=== PATIENT | male | born 1955 | race Caucasian/White ===

== ENCOUNTER → 2018-02-19 08:39 | Day surgery (SDC) | payer OTHER, SELFPAY ==
--- NOTE | 2018-02-19 | PATH_ITS ---
[facility] Accession Number: [id number] . 01 Material submitted: . PART A: TRANSVERSE COLON POLYP AT 50CM PART B: HEPATIC FLEXURE POLYPS PART C: ASCENDING COLON POLYP AT 70CM . 01 Clinical history: . B: POLYPS X 2 . 02 Diagnosis: A. Transverse Colon Polyp At 50 CM: Tubular adenoma. . B. Hepatic Flexure Polyps: Fragments of tubular adenoma (2 polyps removed). . C. Ascending Colon Polyp At 70 CM: Tubular adenoma. I/02/20/2018 . 02 Electronically signed: . Phillip Monzon MD, PhD, Pathologist NPI- [id number] . 01 Gross description: . Received are three formalin-filled containers, each labeled with the patient's name: . A. In a container labeled transverse colon polyp at 50 cm, the specimen consists of a 0.3 cm portion of tissue, entirely submitted in cassette A. B. In a container labeled hepatic flexure polyp, are multiple less than 0.1 cm to 0.3 cm portions of tissue, which are filtered, wrapped, and entirely submitted in cassette B. C. In a container labeled descending col polyp at 70 cm, the specimen consists of a 0.1 cm portion of tissue, entirely submitted in cassette C. ([id number]) /FRR . 02 Pathologist provided ICD-10: D12.2, D12.3 . 02 CPT . 033292, 386204, 755992 Performed at: 01 [facility] [address], [place], [place] [id number] MD Oscar Ennis MD Phone: [phone] Performed at: 02 [facility] [address] [id number] MD Hernesto Sears MD Phone: [phone]
[2018-02-19 09:23] VITALS: BP 126/83; PULSE 69; RESP 14; TEMP 36.3; O2SAT 99
[2018-02-19] MEDS: SODIUM CHLORIDE 0.9% 1,000 ML 21 ML IV (09:23)
--- NOTE | 2018-02-19 09:34 | P.HP_ITS ---
History of Present Illness Date Patient Seen: 02/19/18 Time Patient Seen: 09:29 Chief complaint: colonoscopy 20147 Narrative: 62-year-old male who presents for colorectal screening. It has been 10 years since his last colonoscopy. He reports that that study was normal at the time. He has been having no gastrointestinal symptoms lately. Denies any nausea, vomiting, abdominal pain, unanticipated weight loss, change in bowel habits, diarrhea, constipation, melena, hematochezia, or bright red blood per rectum. Patient History Medical History Benign prostatic hyperplasia (Acute) Hyperlipidemia (Acute) Seasonal allergies (Acute) Surgical History History of hydrocelectomy (Resolved) History of colonoscopy (Inactive) Family & Social History Family History: Reviewed 02/19/18 by Elgin De Jesus MD Social History: household members spouse Former smoker but quit many years ago. Drinks 2-3 alcoholic beverages per day. Recently returned from a trip to [place]. Meds Home Medications Medication Instructions Recorded Confirmed Type aspirin 81 mg PO DAILY 02/19/18 02/19/18 History atorvastatin 40 mg PO DAILY 02/19/18 02/19/18 History azelastine 1 spray INTRANASAL BID 02/19/18 02/19/18 History fenofibrate 145 mg PO DAILY 02/19/18 02/19/18 History loratadine 10 mg PO DAILY 02/19/18 02/19/18 History Allergies Allergy/AdvReac Type Severity Reaction Status Date / Time No Known Drug Allergies Allergy Verified 02/19/18 09:03 Review of Systems Review of Systems All systems reviewed & are unremarkable except as noted in HPI and below Exam Vital Signs (past 8 hours): Vital Signs - 8 hr 3 02/19/18 09:23 Temperature 97.3 F L Pulse Rate 69 Respiratory Rate 14 Blood Pressure 126/83 H Pulse Oximetry 99 Pulse Oximetry 99 Oxygen Delivery Method Room Air Narrative Exam Narrative: Well-nourished well-developed male in no acute distress. Alert oriented x3. accompanies him at the bedside Sclera nonicteric Chest clear to auscultation bilaterally. Regular rate and rhythm Abdomen soft, nondistended, nontender, no masses Extremities show no clubbing, cyanosis, or edema Objective Labs Labs: No recent laboratory or radiographic studies for review Assessment & Plan (1) Screening for colorectal cancer: Problem details: Last colonoscopy was 10 years ago Current visit: Yes Status: Acute Plan: Assessment/Plan Narrative: 62-year-old male requiring colorectal screening since it has been sometime from his prior examination. I recommend colonoscopy. Technical details of the procedure were discussed at length. Risks, benefits, alternatives were explained. Risks including but not limited to sedation, aspiration, bleeding, pain, missed lesion, incomplete examination, need for further radiographic studies, colonic perforation, need for major abdominal surgery, and all attendant risks of major surgery were explained at length. All questions were answered to his satisfaction, and he voiced understanding. Consent was placed on the chart. We will proceed as above.
--- NOTE | 2018-02-19 09:34 | PM.PREOP ---
Pre-operative Note Interval Note Pre-op Check: History & Physical Reviewed by Physician, Exam Performed and History & Physical exam performed today H&P completed within 30 days and has changed as indicated here:: 62-year-old male seen and examined today for colorectal screening. He requires colonoscopy. History physical examination is placed on the chart today. We will proceed as planned. ASA Class (for procedural sedation): I
[2018-02-19] MEDS: fentaNYL 250 MCG/5 ML INJ IV (09:55)
[2018-02-19] MEDS: MIDAZOLAM 5 MG/5 ML VIAL IV (09:56)
--- NOTE | 2018-02-19 09:57 | PM.OP.ENDO ---
Operative Date/Time/Diagnoses - Date of procedure: 02/19/18 Time of procedure: 09:57 Pre-op diagnosis: Colorectal screening Post-op diagnosis: other (Multiple polyps and pandiverticulosis) Procedure & Clinicians Study performed: 1. Sedation per surgeon 2. Colonoscopy with multiple cold forceps polypectomies Same procedure as scheduled: Yes Indications: 62-year-old male who presented for colorectal screening. It has been 10 years since his last examination. Colonoscopy is once again recommended. Surgeon: Elgin De Jesus Procedure Notes SCOAP/Timeout: Yes Procedure in detail: After obtaining informed consent, the patient was brought to the GI suite and placed in the left lateral decubitus position on the examination table. After placement of appropriate monitors, the patient was given incremental doses of Versed and Fentanyl until an appropriate level of sedation was achieved. A time out was held per SCOAP protocol. A digital rectal examination was performed and did not reveal any masses or obstructing lesions. The colonoscope was gently passed into the patient's anus and the entire colon navigated to the level of the cecum with minimal difficulty. Once in the cecum, the scope was withdrawn being sure to go before and beyond all mucosal folds and prominences and get an excellent examination. The findings are noted above. At the level of the rectal vault, the scope was retroflexed and the internal anal canal was examined. The scope was straightened and air aspirated from the colon. The instrument was removed from the patient's body and the procedure was concluded. The patient was allowed to awaken from sedation without difficulty and taken to the post-anesthesia care unit in good condition. Scope withdrawal time: 10:55 Sedation minutes: 20 Findings: diverticulosis (Throughout the entire colon including cecum the without inflammation or hemorrhage) and polyp (Multiple polyps) Specimen(s): other (1. Ascending colon polyp at 70 cm 2. Hepatic flexure polyps x2 3. Transverse colon polyp at 50 cm) Complications: none Recommendations: Colonscopy in 5 years, High fiber diet and Will call with biopsy results Plan for aftercare: 1. Discharge to home Follow up: as needed Disposition: PACU
[2018-02-19 10:01] VITALS: BP 134/88; PULSE 72; RESP 19; TEMP 36.6; O2SAT 96
--- NOTE | 2018-02-19 10:03 | SUR.PHASEII ---
patient arrives awake and alert, denies pain or nausea. remains alert and awake.
[2018-02-19 10:13] VITALS: BP 140/90; PULSE 74; RESP 14; O2SAT 94
== END | disposition home or self-care (01) ==
PROVIDERS: Family Provider Family Medicine; PCP Family Medicine; Visit Provider Surgery
PROC: 0DJD8ZZ Inspection of Lower Intestinal Tract, Via Natural or Artificial Opening Endoscopic (ICD-10-PCS; CPT 45378; principal; 2018-02-19 09:45)
DX: Z12.11 Encounter for screening for malignant neoplasm of colon (principal); K57.30 Diverticulosis of large intestine without perforation or abscess without bleeding; N40.0 Benign prostatic hyperplasia without lower urinary tract symptoms; E78.5 Hyperlipidemia, unspecified; D12.2 Benign neoplasm of ascending colon; D12.3 Benign neoplasm of transverse colon
CPT/HCPCS: 45380; 99152; J2250; J3010

== ENCOUNTER → 2020-12-03 08:38 | Outpatient (CLI) | payer BC, SELFPAY ==
[2020-12-03] MEDS: COVID-19 VACC #1, MRNA(MOD) 100 MCG/0.5 ML VIAL IM (08:44)
== END ==
PROVIDERS: Visit Provider Internal Medicine
DX: Z23 Encounter for immunization (principal)
CPT/HCPCS: 0011A; 91301

== ENCOUNTER → 2020-12-31 08:31 | Outpatient (CLI) | payer BC, SELFPAY ==
[2020-12-31] MEDS: COVID-19 VACC #2, MRNA(MOD) 100 MCG/0.5 ML VIAL IM (08:43)
== END ==
PROVIDERS: Visit Provider Internal Medicine
DX: Z23 Encounter for immunization (principal)
CPT/HCPCS: 0012A; 91301

== ENCOUNTER → 2021-03-18 12:07 | Outpatient (CLI) | payer BC, SELFPAY ==
--- NOTE | 2021-03-18 12:09 | DI.MRI.S_ITS ---
PROCEDURE: MR PELIS WO/W CON INDICATIONS: Prostate CA TECHNIQUE: Coronal HASTE, axial T1 FSE with fat saturation, 3-plane nonbreath-hold T2 FSE. After the administration of contrast, dynamic axial, delayed axial and coronal VIBE or 2-D FLASH with fat saturation through the pelvis. Optional diffusion weighted imaging and ADC may be performed. COMPARISON: None. FINDINGS: Image quality: Diagnostic. Prostate: Gland size is 5.9 x 4.4 x 4.7 cm; ellipsoid gland volume is 63 mL. There is heterogeneous enlargement of the transition zone compatible with BPH. Numerous heterogeneous encapsulated nodules are demonstrated within the transition zone with imaging findings consistent with PI-RADS 2 BPH nodules. There are a few scattered linear areas of intrinsic T1 hyperintensity within the bilateral peripheral zone and a few small foci within the transition zone compatible with blood products likely from a prostate biopsy. This includes a linear region in the right posterior peripheral zone within the mid prostate demonstrating T1 hyperintensity and T2 hypointensity but without associated restricted diffusion. Lesion size(s): Lesion 1: 1.3 x 0.9 x 1.3 cm. Lesion location(s) (sector): Lesion 1: Left posterior peripheral zone at the level of the mid gland to apex. Lesion description: Lesion 1: There is an irregular T2 hypointense lesion with indistinct and spiculated margins. No evidence of extraprostatic invasion. T2 weighted imaging (T2WI) morphology score: Lesion 1: 4 Diffusion weighted imaging (DWI) morphology score: Lesion 1: 4-The lesion is markedly hypointense on ADC with mild hyperintensity on diffusion images. Dynamic contrast enhancement (DCE): Lesion 1: Present. Lesion PI-RADS score: Lesion 1: PI-RADS 4 Genitourinary system: Bladder wall thickness is normal. Distal ureters are non distended. Bowel and peritoneum: No pathologic free pelvic fluid. Inferior colon and small bowel loops are normal in caliber. Nodes and vessels: No pelvic or inguinal adenopathy by size criteria. Iliac vessels are normal in caliber. Soft tissues: No inguinal hernias. Bones: Marrow demonstrates normal overall signal, without suspicious osseous lesions identified. IMPRESSION: 1. PI-RADS 4 lesion demonstrated within the left posterior peripheral zone at high suspicion for clinically significant prostate cancer. No evidence of extraprostatic invasion. 2. Heterogeneous enlargement of the transition zone with multiple encapsulated heterogeneous nodules compatible with PI-RADS 2 BPH nodules. 3. No pelvic lymphadenopathy by size criteria. Dictated by: Oscar Mckeon M.D. on 03/19/2021 at 9:00 Approved by: Oscar Mckeon M.D. on 03/19/2021 at 9:24
== END ==
PROVIDERS: PCP Student in an Organized Health Care Education/Training Program; Referring Provider Specialist; Visit Provider Specialist
DX: C61 Malignant neoplasm of prostate (principal); N52.9 Male erectile dysfunction, unspecified; R97.20 Elevated prostate specific antigen [PSA]
CPT/HCPCS: 72197; A9579

== ENCOUNTER → 2021-07-01 09:08 | Outpatient (CLI) | payer MEDICARE, SELFPAY ==
--- NOTE | 2021-07-01 | DI.US.S_ITS ---
PROCEDURE: US ABD AORTA ANEURYSM SCREEN INDICATIONS: SCREENING TECHNIQUE: Real time scanning was performed of the aorta and iliac arteries, with image documentation. COMPARISON: None. FINDINGS: Aorta: Proximal aortic diameter measures 2.9 cm. Mid-aorta measures 2.2 cm. Distal aortic diameter is 1.6 cm. Iliac arteries: Right common iliac artery measures 1.2 cm. Left common iliac artery measures 1 cm. IMPRESSION: Negative for aneurysm. Dictated by: Carlos Smith M.D. on 07/01/2021 at 14:00 Approved by: Carlos Smith M.D. on 07/01/2021 at 14:01
== END ==
PROVIDERS: PCP Student in an Organized Health Care Education/Training Program; Referring Provider Student in an Organized Health Care Education/Training Program; Visit Provider Student in an Organized Health Care Education/Training Program
DX: Z13.6 Encounter for screening for cardiovascular disorders (principal)
CPT/HCPCS: 76706

== ENCOUNTER → 2021-09-20 15:38 | Outpatient (CLI) | payer MEDICARE, SELFPAY ==
--- NOTE | 2021-09-20 15:40 | DI.MRI.S_ITS ---
PROCEDURE: MR PELIS WO/W CON INDICATIONS: prostate cancer TECHNIQUE: Coronal HASTE, axial T1 FSE with fat saturation, 3-plane nonbreath-hold T2 FSE. After the administration of contrast, dynamic axial, delayed axial and coronal VIBE or 2-D FLASH with fat saturation through the pelvis. Optional diffusion weighted imaging and ADC may be performed. COMPARISON: [facility], MR, MR PELVIS WO/W CON, 03/18/2021, 12:40. FINDINGS: Image quality: Diffusion weighted and dynamic contrast enhanced images are diagnostic. Prostate: Gland size is 5.6 x 4.7 x 3.9 cm; ellipsoid gland volume is 53 mL. Multiple BPH nodules. No significant intrinsic T1 hyperintense foci to suggest hemorrhage. Lesion size(s): Lesion 1: 0.8 x 0.8 cm, (12/17). (Previously 0.9 x 0.7 cm on 03/18/2021). Lesion 2: 0.6 x 0.5 cm, (12/15). (Previously 0.8 x 0.5 cm). Lesion location(s) (sector): Lesion 1: Gardners left peripheral zone. Lesion 2: Gardners right peripheral zone. Lesion description: Lesion 1: Oval Lesion 2: Wedge-shaped T2 weighted imaging (T2WI) morphology score: Lesion 1: 4 Lesion 2: 3 Diffusion weighted imaging (DWI) morphology score: Lesion 1: 4 Lesion 2: 3 Dynamic contrast enhancement (DCE): Lesion 1: Present Lesion 2: Absent Lesion PI-RADS score: Lesion 1: PI-RADS 4. Overall this lesion is not felt to be significantly changed. Lesion 2: PI-RADS 3. Unchanged. Genitourinary system: Bladder wall thickness is normal. Distal ureters are non distended. Bowel and peritoneum: No pathologic free pelvic fluid. Inferior colon and small bowel loops are normal in caliber. Nodes and vessels: No pelvic or inguinal adenopathy by size criteria. Iliac vessels are normal in caliber. Soft tissues: No inguinal hernias. Bones: Marrow demonstrates normal overall signal, without lesions to suggest metastases. IMPRESSION: 1. Left apex peripheral zone observation measuring 0.8 cm, unchanged. PI-RADS 4. 2. Right apex peripheral zone observation measuring 0.6 cm, unchanged. PI-RADS 3. 3. No enlarged lymph nodes. 4. Prostatomegaly. Dictated by: Bob Chávez M.D. on 09/20/2021 at 17:42 Approved by: Bob Chávez M.D. on 09/20/2021 at 17:55
== END ==
PROVIDERS: PCP Student in an Organized Health Care Education/Training Program; Referring Provider Specialist; Visit Provider Specialist
DX: C61 Malignant neoplasm of prostate (principal); N40.0 Benign prostatic hyperplasia without lower urinary tract symptoms
CPT/HCPCS: 72197

== ENCOUNTER 2023-03-02 07:28 | Day surgery (SDC) | payer MEDICARE, SELFPAY ==
--- NOTE | 2023-03-02 | PATH_ITS ---
[facility] Accession Number: [id number] No. of containers..02 Tissue . 01 Material submitted: . PART A: colon - TRANSVERSE POLYP PART B: colon - ASCENDING POLYPS . 01 Diagnosis: A. Transverse Colon, Polyp, Biopsy: Tubular adenoma. . B. Ascending Colon, Polyps, Biopsies: Tubular adenoma. Sessile serrated adenoma. V 03/13/2023 1507 Local . 01 Electronically signed: . Kavita Al MD, Pathologist NPI- [id number] . 01 Gross description: . Part A: TRANSVERSE POLYP: Received in formalin is 1 fragment(s) of falcon, soft tissue measuring 0.4 x 0.4 x 0.3 cm submitted entirely in 1 cassette(s) Part B: ASCENDING POLYPS : Received in formalin are 2 fragment(s) of falcon, soft tissue measuring 0.6 x 0.5 x 0.5 cm to 0.4 x 0.3 x 0.3 cm submitted entirely in 1 cassette(s) /PSYCHIATRIC 03/09/2023 1128 Local . 01 Pathologist provided ICD-10: D12.3, D12.2 . 01 CPT . 522039, 880160 Specimen Comment: A courtesy copy of this report has been sent to [phone] Performed at: 01 [facility] [address] [place] [address], [place], [place] [id number] MD Oscar Ennis MD Phone: [phone]
[2023-03-02 07:44] VITALS: BP 154/95; PULSE 99; RESP 16; TEMP 36; O2SAT 99; BMI 27.2
[2023-03-02] MEDS: LACTATED RINGERS 1,000 ML 100 ML IV (07:56)
--- NOTE | 2023-03-02 08:16 | P.HP_ITS ---
History of Present Illness History of Present Illness Date Patient Seen: 03/02/23 Time Patient Seen: 08:16 Chief complaint: [facility] Narrative: Valentin is a 67-year-old man who is here for colonoscopy. His last was in [address] De Jesus and several tubular adenomas were removed. No known family history of colon cancer. [facility] Medical History Benign prostatic hyperplasia BPH w urinary obs/LUTS BPH w/o urinary obs/LUTS Elevated PSA Erectile dysfunction Hyperlipidemia Incomplete bladder emptying Prostate cancer Seasonal allergies Surgical History History of colonoscopy History of hydrocelectomy Family History Brother Hyperlipidemia Social History marital status: household members: spouse Smoking Status: Former smoker Tobacco: How many years used: 10 alcohol intake: current Meds Home Medications and Allergies Home Medications Medication Instructions Recorded Confirmed Type azelastine 137 mcg (0.1 %) nasal 1 spray intranasal BID 02/19/18 03/02/23 History spray aerosol loratadine 10 mg capsule 10 mg PO DAILY 02/19/18 02/08/23 History coenzyme Q10 300 mg capsule (Co 300 mg PO DAILY 08/03/20 03/02/23 History Q-10) ketotifen fumarate 0.025 % (0.035 drp EYE-BOTH 08/03/20 02/08/23 History %) eye drops ([place]) always eye drops EYE-BOTH 08/06/20 02/08/23 History vit A 7,160 unit-vit C 113 mg-vit tab PO 08/06/20 02/08/23 History E 100 [id number] tablet hydrochlorothiazide 12.5 mg tablet 12.5 mg PO DAILY 02/17/22 03/02/23 History lisinopril 40 mg tablet 40 mg PO DAILY 02/17/22 03/02/23 History tamsulosin 0.4 mg capsule 0.8 mg PO DAILY #180 caps 01/31/23 03/02/23 Rx atorvastatin 40 mg tablet 80 mg PO DAILY 02/08/23 03/02/23 History Allergies Allergy/AdvReac Type Severity Reaction Status Date / Time No Known Drug Allergies Allergy Verified 02/08/23 09:42 Exam Vital Signs (past 8 hours): - 03/02/23 07:44 Temperature 96.8 F L Pulse Rate 99 H Respiratory Rate 16 Blood Pressure 154/95 H Pulse Oximetry 99 Oxygen Delivery Method Room Air Oxygen Delivery Method Room Air Const General: healthy appearing Assessment & Plan Assessment and plan (1) Screening for colorectal cancer: Problem details: Last colonoscopy was 10 years ago Status: Acute Plan Valentin is a 67-year-old man who is here for colonoscopy for colon cancer screening. We reviewed the risks and benefits and he would like to proceed.
[2023-03-02 08:48] VITALS: BP 92/68; PULSE 74; RESP 16; TEMP 36.4; O2SAT 95
--- NOTE | 2023-03-02 08:48 | PM.OP.COLON ---
Operative Date/Time/Diagnoses Date of procedure: 03/02/23 Time of procedure: 08:48 Pre-op diagnosis: History of polyps Post-op diagnosis: same Procedure & Clinicians Study performed: Colonoscopy Same procedure as scheduled: Yes Surgeon: Jose Antonio Delgado Procedure Notes Procedure in detail: Surgeon: Jose Antonio Delgado MD Anesthesia: Aquilino White CRNA Procedure: The patient was brought to the endoscopy suite, placed in left lateral decubitus position. The patient was connected to monitoring devices. A time-out was performed. Sedation was administered. Once the patient was adequately sedated, a digital rectal exam was performed and was normal. The scope was then inserted and advanced to the cecum where the appendiceal orifice was identified and photographed. The scope was then slowly withdrawn over greater than 6 minutes. The mucosa was thoroughly inspected. There were 2 polyps in the ascending colon, each about 6 mm and both removed with a cold snare. There was a 5 mm polyp in the mid transverse colon removed with a cold snare. There was scattered diverticulosis of the right and left colon. The scope was retroflexed in the rectum. No other abnormalities were seen. The scope was straightened and removed. The patient was awakened and brought to recovery. Scope withdrawal time: 8 minutes Sedation time: 13 minutes EBL: 5 mL Findings: Scattered pandiverticulosis, 2 6 mm polyps in the ascending colon and 5 mm polyp transverse colon Post-procedure Disposition: PACU
[2023-03-02 08:52] VITALS: BP 99/68; PULSE 66; RESP 15; O2SAT 93
[2023-03-02 08:57] VITALS: BP 99/70; PULSE 74; RESP 13; TEMP 36.4; O2SAT 95
[2023-03-02 09:13] VITALS: BP 118/78; PULSE 68; RESP 16; TEMP 37.1; O2SAT 98
== END 2023-03-02 11:12 | disposition home or self-care (01) ==
PROVIDERS: PCP Family Medicine; Referring Provider Surgery; Visit Provider Surgery
PROC: 0DJD8ZZ Inspection of Lower Intestinal Tract, Via Natural or Artificial Opening Endoscopic (ICD-10-PCS; CPT 45378; principal; 2023-03-02 08:30)
DX: Z12.11 Encounter for screening for malignant neoplasm of colon (principal); Z86.010 Personal history of colon polyps; K57.30 Diverticulosis of large intestine without perforation or abscess without bleeding; D12.2 Benign neoplasm of ascending colon; D12.3 Benign neoplasm of transverse colon
CPT/HCPCS: 45385; J2704

== ENCOUNTER → 2023-07-08 12:13 | Outpatient (CLI) | payer MEDICARE, SELFPAY ==
--- NOTE | 2023-07-08 13:17 | DI.MRI.S_ITS ---
PROCEDURE: MR PELIS WO/W CON INDICATIONS: Prostate Cancer TECHNIQUE: Coronal HASTE, axial T1 FSE with fat saturation, 3-plane nonbreath-hold T2 FSE. After the administration of contrast, dynamic axial, delayed axial and coronal VIBE or 2-D FLASH with fat saturation through the pelvis. Restricted diffusion weighted imaging and ADC. COMPARISON: [facility], MR, MR PELVIS WO/W CON, 03/18/2021, 12:40. [facility], MR, MR PELVIS WO/W CON, 09/20/2021, 15:48. FINDINGS: Image quality: Diffusion weighted and dynamic contrast enhanced images are diagnostic. Prostate: Gland size is 5.8 x 5.2 x 4.9 cm; ellipsoid gland volume is 77 mL. No significant foci of intrinsic T1 hyperintensity to suggest hemorrhage. Multiple BPH nodules. Lesion size(s): Lesion 1: 0.9 x 0.8 cm, (12/16), previously 0.8 x 0.8 cm, and more remotely 0.9 x 0.7 cm. Lesion 2: 0.7 x 0.6 cm, (12/15), previously 0.6 x 0.5 cm, and more remotely 0.8 x 0.5 cm. Lesion location(s) (sector): Lesion 1: Left apex peripheral zone Lesion 2: Right apex peripheral zone Lesion description: Lesion 1: Oval Lesion 2: Wedge-shaped T2 weighted imaging (T2WI) morphology score: Lesion 1: 3 Lesion 2: 3 Diffusion weighted imaging (DWI) morphology score: Lesion 1: 3 Lesion 2: 3 Dynamic contrast enhancement (DCE): Lesion 1: Present Lesion 2: Absent Lesion PI-RADS score: Lesion 1: PI-RADS 4 Lesion 2: PI-RADS 3 Genitourinary system: Bladder is mostly decompressed. Distal ureters are non distended. Bowel and peritoneum: No pathologic free pelvic fluid. Inferior colon and small bowel loops are normal in caliber. Diverticulosis. Nodes and vessels: No pelvic or inguinal adenopathy by size criteria. Iliac vessels are normal in caliber. Soft tissues: No inguinal hernias. Bones: Marrow demonstrates normal overall signal, without lesions to suggest metastases. IMPRESSION: 1. Prostatomegaly with numerous BPH nodules. 2. Left apex peripheral zone observation measuring 0.9 cm. PI-RADS 4. Unchanged. 3. Right apex peripheral zone observation measuring 0.7 cm. PI-RADS 3. Unchanged. 4. No enlarged lymph nodes. Dictated by: Bob Chávez M.D. on 07/10/2023 at 8:07 Approved by: Bob Chávez M.D. on 07/10/2023 at 8:28
== END ==
PROVIDERS: PCP Family Medicine; Referring Provider Specialist; Visit Provider Specialist
DX: C61 Malignant neoplasm of prostate (principal)
CPT/HCPCS: 72197

== ENCOUNTER → 2023-12-01 07:20 | Outpatient (CLI) | payer MEDICARE, SELFPAY ==
[2023-12-01 09:00] LABS: Add Manual Diff / Slide Review NO; Basophils Absolute Auto 0 /uL (0-100); Basophils Percent Auto 0.9 % (0-2); Eosinophils Absolute Auto 100 /uL (0-450); Eosinophils Percent Auto 2.6 % (2-4); Hematocrit 41.1 % (41-53); Hemoglobin 14.5 g/dL (13.5-17.5); Lymphocytes Absolute Auto 1300 /uL (1100-4500); Lymphocytes Percent Auto 32.8 % (25-40); Mean Corpuscular HGB Conc 35.2 % (30-36); Mean Corpuscular Hemoglobin 34.6 PG (26-34); Mean Corpuscular Volume 98.4 fL (80-100); Monocytes Absolute Auto 400 /uL (0-900); Monocytes Percent Auto 9.1 % (3-14); Neutrophils Absolute Auto 2200 /uL (1500-7000); Neutrophils Percent Auto 54.6 % (50-75); Platelet Count 152 X10^3/uL (150-400); Red Blood Cell Count 4.18 X10^6/uL (4.5-5.9); Red Cell Distribution Width 13.5 % (11.6-14.8)
[2023-12-01 09:19] LABS: Alanine Aminotransferase 34 IU/L (<50); Albumin 4.1 g/dL (3.5-5.0); Albumin Globulin Ratio 1.5 (1.0-2.8); Alkaline Phosphatase 45 U/L (38-126); Aspartate Aminotransferase 40 IU/L (17-59); BUN Creatinine Ratio 15.6 (6-22); Bilirubin Total 0.8 mg/dL (0.2-1.3); Blood Urea Nitrogen 12 mg/dL (9-20); Calcium 8.9 mg/dL (8.4-10.2); Carbon Dioxide 26 mmol/L (22-32); Chloride 101 mmol/L (98-107); Cholesterol 183 mg/dL (140-199); Estimated Glomerular Filt Rate > 60 mL/min (>60); Globulin 2.7 g/dL (1.7-4.1); Glucose 79 mg/dL (80-110); HDL Cholesterol 54 mg/dL (40-60); HEMOLYSIS 20 (0-50); LDL Cholesterol Calculated 93 mg/dL (<100); Potassium 4.2 mmol/L (3.4-5.1); Sodium 135 mmol/L (137-145); Total Protein 6.8 g/dL (6.3-8.2); Triglycerides 178 mg/dL (35-150)
[2023-12-01 09:54] LABS: Prostate Specific Antigen 10.7 ng/mL (0.10-4.00)
== END ==
LOC: LAB 07:22
PROVIDERS: Specialist; PCP Family Medicine; Referring Provider Family Medicine; Visit Provider Family Medicine
DX: I10 Essential (primary) hypertension (principal); N40.1 Benign prostatic hyperplasia with lower urinary tract symptoms; E78.5 Hyperlipidemia, unspecified; N13.8 Other obstructive and reflux uropathy; C61 Malignant neoplasm of prostate; N40.0 Benign prostatic hyperplasia without lower urinary tract symptoms; R97.20 Elevated prostate specific antigen [PSA]
CPT/HCPCS: 36415; 80053; 80061; 84153; 85025

== ENCOUNTER → 2024-07-01 07:16 | Outpatient (CLI) | payer MEDICARE, SELFPAY ==
[2024-07-01 08:23] LABS: Prostate Specific Antigen 14.5 ng/mL (0.10-4.00)
== END ==
PROVIDERS: PCP Family Medicine; Referring Provider Urology; Visit Provider Urology
DX: N40.1 Benign prostatic hyperplasia with lower urinary tract symptoms (principal); R97.20 Elevated prostate specific antigen [PSA]; N13.8 Other obstructive and reflux uropathy
CPT/HCPCS: 36415; 84153

== ENCOUNTER → 2024-12-12 07:07 | Outpatient (CLI) | payer MEDICARE, SELFPAY ==
[2024-12-12 07:34] LABS: Hematocrit 45.4 % (41-53); Hemoglobin 15.4 g/dL (13.5-17.5); Mean Corpuscular HGB Conc 33.9 % (30-36); Mean Corpuscular Hemoglobin 33.1 PG (26-34); Mean Corpuscular Volume 97.7 fL (80-100); Platelet Count 150 X10^3/uL (150-400); Red Blood Cell Count 4.65 X10^6/uL (4.5-5.9); Red Cell Distribution Width 13.5 % (11.6-14.8); White Blood Cell Count 4.8 X10^3/uL (4.5-11.0)
[2024-12-12 08:03] LABS: Alanine Aminotransferase 22 IU/L (<50); Albumin 4.2 g/dL (3.5-5.0); Albumin Globulin Ratio 1.5 (1.0-2.8); Alkaline Phosphatase 77 U/L (38-126); Aspartate Aminotransferase 32 IU/L (17-59); BUN Creatinine Ratio 14.1 (6-22); Bilirubin Total 1.1 mg/dL (0.2-1.3); Blood Urea Nitrogen 11 mg/dL (9-20); Calcium 9.2 mg/dL (8.4-10.2); Carbon Dioxide 23 mmol/L (22-32); Chloride 106 mmol/L (98-107); Cholesterol 236 mg/dL (140-199); Estimated Glomerular Filt Rate > 60 mL/min (>60); Globulin 2.8 g/dL (1.7-4.1); Glucose 111 mg/dL (80-110); HDL Cholesterol 56 mg/dL (40-60); HEMOLYSIS < 15 (0-50); LDL Cholesterol Calculated 153 mg/dL (<100); Potassium 4.1 mmol/L (3.4-5.1); Sodium 138 mmol/L (137-145); Triglycerides 136 mg/dL (35-150)
[2024-12-12 08:21] LABS: Creatinine Urine Random 79.92 mg/dL
[2024-12-12 08:27] LABS: Microalbumin Urine Random 0.6 mg/dL (0-1.6)
[2024-12-12 15:45] LABS: Hep C Virus Ab w/Reflex Quant NEGATIVE s/c (NEGATIVE)
== END ==
PROVIDERS: PCP Family Medicine; Referring Provider Family Medicine; Visit Provider Family Medicine
DX: I10 Essential (primary) hypertension (principal); E78.5 Hyperlipidemia, unspecified; Z11.59 Encounter for screening for other viral diseases
CPT/HCPCS: 36415; 80053; 80061; 82043; 82570; 85027; 86803

== ENCOUNTER → 2025-03-19 10:01 | Outpatient (CLI) | payer MEDICARE, SELFPAY ==
[2025-03-19 11:20] LABS: Blood Urea Nitrogen 13 mg/dL (9-20); Calcium 9.8 mg/dL (8.4-10.2); Carbon Dioxide 27 mmol/L (22-32); Chloride 101 mmol/L (98-107); Estimated Glomerular Filt Rate > 60 mL/min (>60); Glucose 112 mg/dL (70-99); HEMOLYSIS < 15 (0-50); Potassium 4.7 mmol/L (3.4-5.1); Sodium 137 mmol/L (137-145)
[2025-03-19 11:47] LABS: Prostate Specific Antigen 16.5 ng/mL (0.10-4.00)
== END ==
PROVIDERS: PCP Family Medicine; Referring Provider Urology; Visit Provider Urology
DX: N40.1 Benign prostatic hyperplasia with lower urinary tract symptoms (principal); N13.8 Other obstructive and reflux uropathy; R97.20 Elevated prostate specific antigen [PSA]; I10 Essential (primary) hypertension
CPT/HCPCS: 36415; 80048; 84153